=== PATIENT | female | born 1995 | race Caucasian/White ===

== ENCOUNTER 2020-06-29 08:03 | Emergency (ER) | payer MEDICAID, OTHER ==
[~2020-06-29] VITALS: Ht 172.7 cm; Wt 51.9 kg
[2020-06-29 08:06] VITALS: BP 101/71
[2020-06-29] MEDS ORDERED: NEOSPORIN OINT. PKT 1 PACKET ONE (08:20)
== END 2020-06-29 08:49 | disposition home or self-care (01) ==
LOC: ED 08:30
DX: S90.812A Abrasion, left foot, initial encounter (principal); X58.XXXA Exposure to other specified factors, initial encounter; Y93.89 Activity, other specified; Y92.89 Other specified places as the place of occurrence of the external cause; Y99.8 Other external cause status
CPT/HCPCS: 99282

== ENCOUNTER 2020-07-03 19:18 | Emergency (ER) | payer MEDICAID ==
[~2020-07-03] VITALS: Ht 172.7 cm; Wt 55.1 kg
[2020-07-03 19:32] VITALS: BP 107/73
[2020-07-03 20:04] LABS: MICROSCOPIC NOT IND
--- NOTE | 2020-07-03 21:14 | NUR ---
PATIENT MADE INFORMED DECISION TO LEAVE HOSPITAL AMA, SIGNED AMA FORM AT 2100 ON 07/03/20.
== END 2020-07-03 21:16 | disposition left against medical advice (07) ==
LOC: ED 21:10
DX: R10.30 Lower abdominal pain, unspecified (principal)
CPT/HCPCS: 81003; 99283

== ENCOUNTER 2020-08-12 21:14 | Emergency (ER) | payer MEDICAID ==
[~2020-08-12] VITALS: Ht 172.7 cm; Wt 54.2 kg
[2020-08-12 21:18] VITALS: BP 105/81
== END 2020-08-12 23:06 | disposition home or self-care (01) ==
LOC: ED 22:30
DX: J98.01 Acute bronchospasm (principal); R06.2 Wheezing; R07.89 Other chest pain
CPT/HCPCS: 99281

== ENCOUNTER 2020-10-24 10:59 | Emergency (ER) | payer MEDICAID ==
[~2020-10-24] VITALS: Ht 172.7 cm; Wt 57.6 kg
--- NOTE | 2020-10-24 11:15 | NUR ---
GREEN/YELLOW VAGINAL DC FOR 2 WEEKS WITH NO RELIEF AFTER TAKING YEAST MEDICATION. PT TO BATHROOM WITH STEADY GAIT. GIVEN UA COLLECTION CUP. EDUCATED ON CLEAN CATCH.
--- NOTE | 2020-10-24 11:37 | NUR ---
MALIK MEDEIROS AT BEDSIDE FOR VAGINAL ASSESSMENT.
[2020-10-24 11:55] LABS: HCG UR SG 1.014 (1.003-1.030)
[2020-10-24] MEDS ORDERED: AZITHROMYCIN 500 MG TABLET PO ONE (12:00)
[2020-10-24] MEDS ORDERED: CEFTRIAXONE 1,000 MG IM ONE (12:00)
[2020-10-24 12:02] LABS: CLUE CELLS NONE SEEN (NONE SEEN); WET PREP WBCS MANY (FEW)
[2020-10-24 13:01] VITALS: BP 108/61
--- NOTE | 2020-10-24 13:02 | NUR ---
Patient/Caregiver given discharge instructions and they have confirmed that they understand the instructions. Patient ambulatory with steady gait.
== END 2020-10-24 13:02 | disposition home or self-care (01) ==
LOC: ED 11:41
DX: B37.3 Candidiasis of vulva and vagina (principal); N89.8 Other specified noninflammatory disorders of vagina
CPT/HCPCS: 81025; 87210; 87491; 87591; 87808; 99284